=== PATIENT | male | born 1955 | race Caucasian/White ===

== ENCOUNTER 2016-12-05 23:01 | Emergency (ER) | payer BC ==
[~2016-12-05] VITALS: Ht 177.8 cm; Wt 90.7 kg
[2016-12-06] MEDS ORDERED: ONDANSETRON HCL/PF 4 MG/2 ML VIAL ONE (00:11)
[2016-12-06] MEDS ORDERED: HYDROMORPHONE 1 MG/1 ML DISP.SYRIN ONE (00:11)
--- NOTE | 2016-12-06 00:23 | NUR ---
MEDICATED PT ORDERED
[2016-12-06] MEDS ORDERED: HYDROMORPHONE INJ 2 MG/ML DISP.SYRIN IV ONE (00:30)
[2016-12-06] MEDS ORDERED: ONDANSETRON HCL/PF 4 MG/2 ML VIAL IVP ONE (00:30)
--- NOTE | 2016-12-06 00:30 | NUR ---
PT MOVED TO ER #1. ASSUMED CARE OF PT.
--- NOTE | 2016-12-06 01:07 | NUR ---
Patient discharged to home in stable condition. Written and verbal after care instructions given. Patient verbalizes understanding of instruction AND RX. PT LEFT VIA WC AND WAS ASSISTED TO HIS SON'S CAR. VSS
[2016-12-06 01:11] VITALS: BP 128/83
== END 2016-12-06 01:11 | disposition home or self-care (01) ==
LOC: ER 23:07
DX: M25.561 Pain in right knee (principal); Z88.1 Allergy status to other antibiotic agents
CPT/HCPCS: 96374; 96375; 99284; A4606 ×2; J1170; J2405; Z7610 ×2